=== PATIENT | female | born 1995 | race Caucasian/White ===

== ENCOUNTER 2017-02-18 21:36 | Emergency (ER) | payer OTHER ==
[~2017-02-18] VITALS: Ht 177.8 cm; Wt 63.5 kg
[2017-02-18 21:39] VITALS: Ht 177.8 cm; Wt 63.5 kg
[2017-02-18] MEDS ORDERED: CEPHALEXIN MONOHYDRATE 250 MG CAP PO STA (21:57)
[2017-02-18] MEDS ORDERED: PHEN-876 PO (21:59)
[2017-02-18] MEDS ORDERED: CEPH500C PO (21:59)
[2017-02-18] MEDS ORDERED: PHENAZOPYRIDINE HOME PACK 200 MG VIAL PO ONE (22:00)
--- NOTE | 2017-02-18 22:04 | EMERGENCY ROOM VISIT NOTE ---
History Report prepared by Romaine: Mercedes Yoder Under the Supervision of: Dr. Michael Al M.D. First contact with patient: 21:42 Chief Complaint: URINARY SYMPTOMS Stated Complaint: FEELING NEED TO PEE,PEEING BLOOD Nursing Triage Summary: Pt reports she has UTI symptoms that started at noon. History of Present Illness The patient is a 21 year old female who presents to the Emergency Room with complaints of persistent hematuria starting about 10 hours ago. Her symptoms started when she had a sudden urge to urinate. She was unable to urinate but started having bladder pain. She then started having blood in her urine. She did not take any pain medications. She is not on any blood thinners. She is on control. The patient does not have any medical problems. She denies any fevers, chills, or any other complaints. She denies any chance of . Source of History: patient Onset: about 10 hours ago Position: other (global) Quality: other (hematuria) Timing: other (persistent) Associated Symptoms: No chills, No fevers Review of Systems See HPI for pertinent positives & negatives. A total of 10 systems reviewed and were otherwise negative. Past Medical & Surgical Medical Problems: (1) control Family History Patient reports no known family medical history. Social History Smoking Status: Never Smoker Marital Status: in relationship Occupation Status: student Current/Historical Medications Scheduled Cephalexin Monohydrate (Keflex), 500 MG PO TID Scheduled PRN Phenazopyridine HCl (Pyridium), 200 MG PO TID PRN for Frequency/Burning w/ Urination Physical Exam Vital Signs Date Time Temp Pulse Resp B/P Pulse Ox O2 Delivery O2 Flow Rate FiO2 02/18/17 21:39 37.0 95 16 122/79 98 Room Air Physical Exam GENERAL: Patient is in no acute distress. HEENT: No acute trauma, normocephalic atraumatic, mucous membranes moist, no nasal congestion, no scleral icterus. NECK: No stridor, no adenopathy, no meningismus, trachea is midline. LUNGS: Clear to auscultation bilaterally, no wheeze, no rhonchi, breath sounds equal. HEART: Without murmurs gallops or rubs, regular rate and rhythm. ABDOMEN: Soft, nontender, bowel sounds positive, no hernias, no peritonitis. BACK: No flank discomfort to percussion. EXTREMITIES: No cyanosis or edema, full range of motion of all the joints without pain or difficulty, no signs for acute trauma. NEUROLOGIC: Oriented x 3, no acute motor or sensory deficits, no focal weakness. SKIN: No rash, no jaundice, no diaphoresis. Medical Decision & Procedures Laboratory Results Test 02/18/17 21:47 Urine Test NEG (NEG) Urine dip is positive for leucocytes and blood, consistent with infection. Urine test is negative. ED Course 2141: The patient was evaluated in room D02B. A complete history and physical exam was performed. 2156: Keflex Cap 500 mg PO 2199: Phenazopyridine HCl 1 homepack PO. Reevaluated the patient. Discussed results and discharge instructions: She verbalized understanding and agreement. The patient is ready for discharge. Medical Decision Differential diagnosis includes but is not limited to renal stone, hematuria, UTI, vaginal infection, bladder polyp, . The patient presents with dysuria and some hematuria. She has no flank pain, there has been no fever or vomiting. Urine dip does suggest infection, urine culture is pending. test is negative. Patient was given oral Pyridium and oral Keflex. She is being discharged on the same. If worsening, she can return. Impression Primary Impression: Urinary tract infection Scribe Attestation The scribe's documentation has been prepared under my direction and personally reviewed by me in its entirety. I confirm that the note above accurately reflects all work, treatment, procedures, and medical decision making performed by me. Departure Information Dispostion Home / Self-Care Prescriptions Phenazopyridine HCl (Pyridium) 200 Mg Tab 200 MG PO TID Y for Frequency/Burning w/Urination, #6 TAB Prov: Michael Al M.D. 02/18/17 Cephalexin Monohydrate (Keflex) 500 Mg Cap 500 MG PO TID for 5 Days, #15 CAP Prov: Michael Al M.D. 02/18/17 Referrals No Doctor, Assigned (PCP) Forms HOME CARE DOCUMENTATION FORM, IMPORTANT VISIT INFORMATION Patient Instructions My [facility] Additional Instructions keflex 3x per day for 5 days pyridium 3x per day for the burning and urgency fluids are prado tylenol for pain return if worsening or if not improving
[2017-02-18 22:12] VITALS: BP 118/77; PULSE 91; TEMP 37; O2SAT 98
[2017-02-18] MEDS ORDERED: BCPILLS PO (22:12)
--- NOTE | 2017-02-20 14:15 | Pharmacy Progress Note ---
ED Pharmacist Culture FollowUp Date of Service: February 20, 2017. Patient was sent home with a prescription for cephalexin, which should cover the E. coli growing from the patient's urine culture (based on reported sensitivity to cefazolin).
== END 2017-02-18 22:13 | disposition home or self-care (01) ==
LOC: C.EDB 21:38 → C.EDD 22:13
DX: N39.0 Urinary tract infection, site not specified (principal)